=== PATIENT | male | born 1995 | race Caucasian/White ===

== ENCOUNTER 2022-06-23 13:04 | Emergency (ER) | payer BC, MEDICAID ==
[~2022-06-23] VITALS: Ht 175.3 cm; Wt 63.6 kg
[~2022-06-23 13:04] MED LIST: IBUP-1574 PO; LANS30CA37 PO; NO HOME MEDS; SUCR1ORA2 PO
[2022-06-23 13:09] VITALS: BP 125/71
[2022-06-23] MEDS ORDERED: diazepam 5mg tablet PO ONE (14:45)
[2022-06-23] MEDS ORDERED: TETanus/Pertussis (Acell)/Diphther VAC/PF (Tdap-Adult) 0.5ml syringe IMVAC ONE (14:45)
[2022-06-23] MEDS ORDERED: ketorolac trometh inj. 60 MG/2 ML VIAL IM ONE (14:45)
[2022-06-23] MEDS ORDERED: LIDOcaine 1% w/EPI 1:100,000 30ml vial (MDV) IJ ONE (14:50)
[2022-06-23] MEDS ORDERED: IBUP-1986 PO (15:12)
[2022-06-23] MEDS ORDERED: CYCL-1 PO (15:12)
== END 2022-06-23 15:36 | disposition home or self-care (01) ==
LOC: ER 13:04
DX: S60.551A Superficial foreign body of right hand, initial encounter (principal); Z88.8 Allergy status to other drugs, medicaments and biological substances; V49.9XXA Car occupant (driver) (passenger) injured in unspecified traffic accident, initial encounter; Y93.89 Activity, other specified; Y92.89 Other specified places as the place of occurrence of the external cause; Y99.8 Other external cause status
CPT/HCPCS: 10120; 73130; 90471; 90715; 96372; 99285; J1885

== ENCOUNTER 2023-10-05 13:57 | Emergency (ER) | payer MEDICAID ==
[~2023-10-05] VITALS: Ht 175.3 cm; Wt 60.4 kg
[~2023-10-05 13:57] MED LIST changes: +CYCL-1 PO; +IBUP-1986 PO
[2023-10-05 14:05] VITALS: BP 162/138; PULSE 121; RESP 16; TEMP 98; O2SAT 100
[2023-10-05] MEDS ORDERED: methylPREDNISolone sod succ 125mg/2ml vial IV ONE (14:25)
[2023-10-05] MEDS ORDERED: DIPH25CA83 PO (14:52)
[2023-10-05] MEDS ORDERED: PRED20TA PO (14:52)
[2023-10-05] MEDS: methylPREDNISolone sod succ 125mg/2ml vial IM ONE (14:57)
== END 2023-10-05 16:00 | disposition home or self-care (01) ==
LOC: ER 13:58
DX: L30.8 Other specified dermatitis (principal); Z88.8 Allergy status to other drugs, medicaments and biological substances; Z79.899 Other long term (current) drug therapy
CPT/HCPCS: 96372; 99283; J2930

== ENCOUNTER 2024-01-07 13:10 | Emergency (ER) | payer MEDICAID ==
[~2024-01-07] VITALS: Ht 175.3 cm; Wt 61.4 kg
[~2024-01-07 13:10] MED LIST changes: +DIPH25CA83 PO
[2024-01-07 13:21] VITALS: BP 109/67; PULSE 79; RESP 18; TEMP 98; O2SAT 97
[2024-01-07 14:29] LABS: BASOPHILS % (AUTO) 0.6 % (0-1); EOSINOPHILS % (AUTO) 0.5 % (0-6); HEMATOCRIT 45.9 % (42.0-52.0); HEMOGLOBIN 15.7 g/dl (14.0-17.9); LYMPHOCYTES % (AUTO) 14.4 % (21-51); MEAN CORPUSCULAR HEMOGLOBIN 31.8 PG (27.0-31.0); MEAN CORPUSCULAR HGB CONC 34.2 g/dL (33.0-36.5); MEAN CORPUSCULAR VOLUME 92.8 FL (78-98); MEAN PLATELET VOLUME 8.3 FL (7.4-10.4); MONOCYTES # (AUTO) 0.4 X10'3 (0-0.9); MONOCYTES % (AUTO) 6.6 % (2-12); NEUTROPHILS # (AUTO) 5.3 X10'3 (1.8-7.7); NEUTROPHILS % (AUTO) 77.9 % (42-75); PLATELET COUNT 223 X10'3 (140-440); RED BLOOD COUNT 4.94 X10'6 (4.70-6.10); RED CELL DISTRIBUTION WIDTH 12.7 % (11.5-14.5); WHITE BLOOD COUNT 6.8 X10'3 (4.5-11.0)
[2024-01-07 14:55] LABS: ALANINE AMINOTRANSFERASE 13 U/L (12-78); ALBUMIN 4.4 G/DL (3.4-5.0); ALBUMIN/GLOBULIN RATIO 1.4 (1.1-1.5); ALKALINE PHOSPHATASE 35 IU/L (46-116); ANION GAP 7 (8-16); ASPARTATE AMINO TRANSFERASE 11 U/L (10-37); BILIRUBIN,TOTAL 0.6 MG/DL (0.1-1.0); BLOOD UREA NITROGEN 8 MG/DL (7-18); BUN/CREATININE RATIO 9.9 (10.0-20.0); CALCIUM 9.1 MG/DL (8.5-10.1); CHLORIDE 103 MMOL/L (99-107); CREATININE 0.81 MG/DL (0.60-1.10); GLUCOSE 93 MG/DL (70-104); LIPASE 19 U/L (16-77); SODIUM 140 MMOL/L (135-145); TOTAL CARBON DIOXIDE 30.3 MMOL/L (24-32); TOTAL PROTEIN 7.6 G/DL (6.4-8.2); eCRCL 116 ML/MIN; eGFR > 90 ML/MIN
[2024-01-08] MEDS ORDERED: PANT-47 PO (18:35)
== END 2024-01-07 21:31 | disposition left against medical advice (07) ==
LOC: ER 13:10
DX: R10.31 Right lower quadrant pain (principal); R10.33 Periumbilical pain; Z53.21 Procedure and treatment not carried out due to patient leaving prior to being seen by health care provider
CPT/HCPCS: 36415; 74176; 80053; 83690; 85025

== ENCOUNTER 2024-01-08 06:40 | Emergency (ER) | payer MEDICAID ==
[~2024-01-08] VITALS: Ht 175.3 cm; Wt 61.3 kg
[2024-01-08 06:57] VITALS: TEMP 98.8
[2024-01-08] MEDS: SINCALIDE IV ONE (09:45)
[2024-01-08] MEDS: NORMAL SALINE IV ONE (09:45)
[2024-01-08 10:28] LABS: BASOPHILS # (AUTO) 0.2 X10'3 (0-0.2); BASOPHILS % (AUTO) 2.5 % (0-1); EOSINOPHILS # (AUTO) 0.1 X10'3 (0-0.9); EOSINOPHILS % (AUTO) 1.8 % (0-6); HEMATOCRIT 48.8 % (42.0-52.0); HEMOGLOBIN 16.9 g/dl (14.0-17.9); LYMPHOCYTES # (AUTO) 0.5 X10'3 (1.1-4.8); LYMPHOCYTES % (AUTO) 7.6 % (21-51); MEAN CORPUSCULAR HEMOGLOBIN 31.9 PG (27.0-31.0); MEAN CORPUSCULAR HGB CONC 34.6 g/dL (33.0-36.5); MEAN CORPUSCULAR VOLUME 92.2 FL (78-98); MEAN PLATELET VOLUME 8.3 FL (7.4-10.4); MONOCYTES # (AUTO) 0.3 X10'3 (0-0.9); MONOCYTES % (AUTO) 4.3 % (2-12); NEUTROPHILS # (AUTO) 5.8 X10'3 (1.8-7.7); NEUTROPHILS % (AUTO) 83.8 % (42-75); PLATELET COUNT 244 X10'3 (140-440); RED CELL DISTRIBUTION WIDTH 12.7 % (11.5-14.5); WHITE BLOOD COUNT 6.9 X10'3 (4.5-11.0)
[2024-01-08 10:47] LABS: ALANINE AMINOTRANSFERASE 16 U/L (12-78); ALBUMIN 4.7 G/DL (3.4-5.0); ALBUMIN/GLOBULIN RATIO 1.3 (1.1-1.5); ALKALINE PHOSPHATASE 41 IU/L (46-116); ANION GAP 11 (8-16); ASPARTATE AMINO TRANSFERASE 13 U/L (10-37); BILIRUBIN,TOTAL 0.8 MG/DL (0.1-1.0); BLOOD UREA NITROGEN 9 MG/DL (7-18); BUN/CREATININE RATIO 9.8 (10.0-20.0); CALCIUM 9.6 MG/DL (8.5-10.1); CHLORIDE 100 MMOL/L (99-107); CREATININE 0.92 MG/DL (0.60-1.10); GLUCOSE 94 MG/DL (70-104); LIPASE 20 U/L (16-77); POTASSIUM 4.2 MMOL/L (3.5-5.1); SODIUM 137 MMOL/L (135-145); TOTAL CARBON DIOXIDE 26.3 MMOL/L (24-32); TOTAL PROTEIN 8.4 G/DL (6.4-8.2); eCRCL 102 ML/MIN; eGFR > 90 ML/MIN
[2024-01-08 13:23] LABS: BILIRUBIN,URINE SMALL (Neg); CLARITY,URINE CLOUDY (Clear); COLOR,URINE YELLOW (Yellow); GLUCOSE, URINE NEGATIVE (Neg); KETONES,URINE >=80 mg/dl (Neg); LEUKOCYTE ESTERASE ,URINE NEGATIVE (Neg); NITRITES, URINE NEGATIVE (Neg); OCCULT BLOOD,URINE NEGATIVE (Neg); PH,URINE 6.5 (4.8-8.0); PROTEIN,URINE NEGATIVE (Neg); UROBILINOGEN,URINE 0.2 E.U/dL (0.2-1.0)
[2024-01-08 13:30] LABS: UA COLLECTION TYPE CLN CATCH MIDSTREAM
[2024-01-08 13:31] LABS: MUCUS STRANDS MANY /LPF (Neg); WBC,URINE 0-4 /HPF (0-4)
[2024-01-08 13:32] LABS: BACTERIA,URINE FEW /HPF (Neg); RBC,URINE 0-2 /HPF (0-2); SQUAMOUS EPITHELIAL CELL,UR FEW /LPF (FEW)
[2024-01-08 13:57] LABS: URINE AMPHETAMINE SCREEN NEGATIVE (Neg); URINE BARBITUATE SCREEN NEGATIVE (Neg); URINE BENZODIAZEPINES SCREEN NEGATIVE (Neg); URINE CANNABINOID SCREEN NEGATIVE (Neg); URINE COCAINE SCREEN NEGATIVE (Neg); URINE METHADONE SCREEN NEGATIVE (Neg); URINE OPIATE SCREEN NEGATIVE (Neg); URINE PHENCYCLIDINE SCREEN NEGATIVE (Neg)
[2024-01-08] MEDS: morphine 2 MG/ML inj. syringe IV ONE (16:32)
[2024-01-08] MEDS: ondansetron/PF 4mg/2ml inj IV ONE (16:34)
[2024-01-08 17:55] VITALS: BP 110/66; PULSE 88; RESP 16; O2SAT 99
[2024-01-08] MEDS ORDERED: PANT-47 PO (18:35)
[2024-01-08] MEDS ORDERED: phenobarb/hyoscy/atropine/scop (Donnatal) 16.2mg tablet PO PRN (18:40)
[2024-01-08] MEDS: mag hydrox/Alum hydrox/simeth 30ml oral suspension PO ONE (19:00)
== END 2024-01-08 19:04 | disposition home or self-care (01) ==
LOC: ER 06:41
DX: R10.9 Unspecified abdominal pain (principal); R11.0 Nausea; Z88.8 Allergy status to other drugs, medicaments and biological substances
CPT/HCPCS: 36415; 78227; 80053; 80305; 81001; 83690; 85025; 96374; 96375; 99285; A9537; J2270; J2405